=== PATIENT | male | born 1955 | race Caucasian/White ===

== ENCOUNTER → 2017-01-28 | Outpatient (CLI) | payer OTHER ==
[~2017-01-28] MED LIST: ALLOPURINOL100 MG PO; ASPIRIN EC81 MG PO; DOCUSATE SODIU100 MG PO; FISH OIL 1,2001 EAC1 PO; IMDUR30 MG PO; LIPITOR40 MG PO; MAGNESIUM250 M1 PO; NITROSTAT0.4 MG SL; SYNTHROID25 MCG PO; THERA-VITE W/ B1 TAB PO; TOPROL XL25 MG PO
[2017-01-28 18:11] LABS: ALBUMIN 3.9 gm/dL (3.5-5.0); TOTAL BILIRUBIN 0.6 mg/dL (0.0-1.5)
== END ==
LOC: LNHI 17:50
PROVIDERS: Internal Medicine Interventional Cardiology
DX: E78.5 Hyperlipidemia, unspecified (principal); I25.10 Atherosclerotic heart disease of native coronary artery without angina pectoris; I10 Essential (primary) hypertension